=== PATIENT | male | born 1995 | race Caucasian/White ===

== ENCOUNTER 2016-07-13 04:40 | Emergency (ER) | payer MEDICAID, OTHER ==
[~2016-07-13] VITALS: Ht 170.2 cm; Wt 69.9 kg
--- NOTE | 2016-07-13 04:45 | NUR ---
BIB WHEELCHAIR TO ER BED 3
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
[2016-07-13 04:48] VITALS: BP 122/82
--- NOTE | 2016-07-13 04:48 | NUR ---
Patient being evaluated by physician at bedside.
[2016-07-13] MEDS ORDERED: IBUPROFEN 800 MG TAB PO ONE (04:55)
[2016-07-13] MEDS ORDERED: traMADol 50 MG TAB PO ONE (05:35)
[2016-07-13 05:43] VITALS: BP 118/79
--- NOTE | 2016-07-13 05:44 | NUR ---
Patient discharged with v/s stable. Written and verbal after care instructions given and explained. Patient alert, oriented and verbalized understanding of instructions. Ambulatory with steady gait WITH CRUTCHES. All questions addressed prior to discharge. ID band removed. Patient advised to follow up with PMD. Rx of TRAMADOL HYRDOCHLORIDE AND IBUPROFEN given. Patient educated on indication of medication including possible reaction and side effects. Opportunity to ask questions provided and answered.
== END 2016-07-13 05:43 | disposition home or self-care (01) ==
LOC: MED 04:40
DX: S80.01XA Contusion of right knee, initial encounter (principal); J45.909 Unspecified asthma, uncomplicated; Z88.0 Allergy status to penicillin; V87.8XXA Person injured in other specified noncollision transport accidents involving motor vehicle (traffic), initial encounter; Y93.89 Activity, other specified; Y92.89 Other specified places as the place of occurrence of the external cause; Y99.8 Other external cause status
CPT/HCPCS: 73562; 99284

== ENCOUNTER 2022-11-08 04:50 | Emergency (ER) | payer SELFPAY ==
[~2022-11-08] VITALS: Ht 175.3 cm; Wt 88.9 kg
[2022-11-08 05:00] VITALS: BP 120/78; PULSE 90; RESP 17; TEMP 98; O2SAT 97
[2022-11-08] MEDS ORDERED: IBUPROFEN 600 MG TAB PO ONE (05:40)
[2022-11-08] MEDS ORDERED: NAPR-54 PO (05:41)
[2022-11-08] MEDS ORDERED: HYDROcodone/APAP 5/325 MG 1 TAB TAB PO ONE (06:10)
== END 2022-11-08 06:21 | disposition home or self-care (01) ==
LOC: MED 04:50
DX: S62.521A Displaced fracture of distal phalanx of right thumb, initial encounter for closed fracture (principal); J45.909 Unspecified asthma, uncomplicated; Z88.0 Allergy status to penicillin; Z79.899 Other long term (current) drug therapy; X58.XXXA Exposure to other specified factors, initial encounter; Y93.89 Activity, other specified; Y92.89 Other specified places as the place of occurrence of the external cause; Y99.8 Other external cause status
CPT/HCPCS: 29130; 73130; 99283; Q0092

== ENCOUNTER 2023-06-28 02:53 | Emergency (ER) | payer SELFPAY ==
[~2023-06-28] VITALS: Ht 172.7 cm; Wt 68.9 kg
[~2023-06-28 02:53] MED LIST: NAPR-337 PO
[2023-06-28 03:02] VITALS: BP 106/70; PULSE 101; RESP 20; TEMP 97.7; O2SAT 98
[2023-06-28] MEDS ORDERED: SULF-59 PO (04:31)
[2023-06-28 04:39] VITALS: BP 106/70; PULSE 101; RESP 20; TEMP 97.7; O2SAT 98
== END 2023-06-28 04:40 | disposition home or self-care (01) ==
LOC: MED 02:53
DX: L03.211 Cellulitis of face (principal); L03.114 Cellulitis of left upper limb; L03.317 Cellulitis of buttock; J45.909 Unspecified asthma, uncomplicated; Z79.899 Other long term (current) drug therapy; Z88.0 Allergy status to penicillin
CPT/HCPCS: 99283